=== PATIENT | female | born 1985 | race Caucasian/White ===

== ENCOUNTER 2016-07-22 23:50 | Emergency (ER) | payer OTHER ==
[~2016-07-22] VITALS: Ht 162.6 cm; Wt 72.6 kg
[~2016-07-22 23:50] MED LIST: DESYREL50 MG PO
[2016-07-23 00:11] VITALS: BP 164/89
--- NOTE | 2016-07-23 00:15 | NUR ---
Patient ambulated to bed 07.
--- NOTE | 2016-07-23 00:24 | NUR ---
PATIENT PRESENTS TO ED WITH NECK PAIN [id number] . PT STATES THE NECK PAIN IS NOW RADIATING TO HER HEAD. SHE STATES SHE TOOK ADVIL X1.5HOURS AGO WITH NO RELIEF. PT HAS HX OF MIGRAINES . DENIES DIARRHEA; SKIN IS PINK/WARM/DRY; AAOX4 WITH EVEN AND STEADY GAIT; LUNGS CLEAR BL; HR EVEN AND REGULAR; PT DENIES ANY FEVER, CP, SOB, OR COUGH AT THIS TIME; PATIENT STATES PAIN OF 10/10 AT THIS TIME; VSS; PATIENT POSITIONED FOR COMFORT; HOB ELEVATED; BEDRAILS UP X2; BED DOWN. ER MD MADE AWARE OF PT STATUS. FRIEND AT BEDSIDE
--- NOTE | 2016-07-23 00:29 | NUR ---
Dr. Sutton evaluating patient at bedside.
[2016-07-23] MEDS ORDERED: MORPHINE SULFATE 4 MG/ML SYR IVP ONE (00:30)
[2016-07-23] MEDS ORDERED: NACL 0.9% 1,000 ML IV ONE (00:30)
[2016-07-23] MEDS ORDERED: cefTRIAXone 1,000 MG VIAL ONE (00:37)
[2016-07-23 01:54] VITALS: BP 127/91
--- NOTE | 2016-07-23 01:54 | NUR ---
PER DR. GARCIA, Patient discharged with v/s stable. Written and verbal after care instructions given and explained. Patient alert, oriented and verbalized understanding of instructions. Ambulatory with steady gait. All questions addressed prior to discharge. ID band removed. Patient advised to follow up with PMD. Rx of CIPRO 500MG PO BID, NAPROSYN, AND SOMA given. Patient educated on indication of medication including possible reaction and side effects. Opportunity to ask questions provided and answered. D/C NOTE ONLY
== END 2016-07-23 01:54 | disposition home or self-care (01) ==
LOC: MED 23:50
DX: S16.1XXA Strain of muscle, fascia and tendon at neck level, initial encounter (principal); R03.0 Elevated blood-pressure reading, without diagnosis of hypertension; N39.0 Urinary tract infection, site not specified; X58.XXXA Exposure to other specified factors, initial encounter; Y93.89 Activity, other specified; Y92.89 Other specified places as the place of occurrence of the external cause; Y99.8 Other external cause status
CPT/HCPCS: 81002; 81025; 96365; 96375; 99284; J0696; J2270; J7030; J7060

== ENCOUNTER 2023-12-03 12:26 | Emergency (ER) | payer OTHER ==
[~2023-12-03] VITALS: Ht 162.6 cm; Wt 77.1 kg
[~2023-12-03 12:26] MED LIST changes: -DESYREL50 MG PO; +TRAZ-343 PO
[2023-12-03 12:31] VITALS: BP 145/97; PULSE 65; RESP 18; TEMP 98.4; O2SAT 99
[2023-12-03] MEDS: NACL 0.9% 1,000 ML IV ONE ×2 (13:28→15:29)
[2023-12-03] MEDS: KETOROLAC 30 MG/ML VIAL IVP ONE (13:30)
[2023-12-03] MEDS: PROCHLORPERAZINE 10 MG/2 ML VIAL IVP ONE (13:35)
[2023-12-03] MEDS: diphenhydrAMINE 50 MG/ML VIAL IVP ONE (13:36)
[2023-12-03 15:09] LABS: BASOPHILS % (AUTO) 0.5 % (0.0-2.0); EOSINOPHILS # (AUTO) 0.1 K/uL (0-0.4); EOSINOPHILS % (AUTO) 0.6 % (0.0-4.0); HEMATOCRIT 35.7 % (36-48); HEMOGLOBIN 11.7 g/dL (12.0-16.0); LYMPHOCYTES # (AUTO) 1.8 K/uL (2.5-16.5); LYMPHOCYTES % (AUTO) 18.6 % (20.5-51.1); MEAN CORPUSCULAR HEMOGLOBIN 31 pg (27-31); MEAN CORPUSCULAR HGB CONC 33 g/dL (33-37); MEAN CORPUSCULAR VOLUME 93.2 fL (80-94); MONOCYTES # (AUTO) 0.7 K/uL (0.8-1.0); MONOCYTES % (AUTO) 7.7 % (1.7-9.3); NEUTROPHILS # (AUTO) 6.9 K/uL (1.8-7.7); NEUTROPHILS % (AUTO) 72.6 % (42.2-75.2); PLATELET COUNT (AUTO) 287 K/uL (140-450); RED BLOOD CELL COUNT(AUTO) 3.82 MIL/uL (4.20-5.40); RED CELL DISTRIBUTION WIDTH 13.7 % (11.6-13.7); WHITE BLOOD COUNT (AUTO) 9.5 K/uL (4.8-10.8)
[2023-12-03 15:16] LABS: ANION GAP 10.1 (8-16); CALCIUM 8.5 mg/dL (8.5-10.1); CARBON DIOXIDE 26.9 mmol/L (21-32); CREATININE 0.6 mg/dL (0.6-1.3)
[2023-12-03 17:54] VITALS: BP 161/104; PULSE 70; RESP 18; TEMP 98.4; O2SAT 100
== END 2023-12-03 17:54 | disposition home or self-care (01) ==
LOC: MED 12:26
DX: G43.909 Migraine, unspecified, not intractable, without status migrainosus (principal); R42 Dizziness and giddiness; R11.2 Nausea with vomiting, unspecified; Z90.49 Acquired absence of other specified parts of digestive tract; Z98.890 Other specified postprocedural states; Z79.899 Other long term (current) drug therapy; F15.90 Other stimulant use, unspecified, uncomplicated
CPT/HCPCS: 36415; 80048; 81025; 84484; 85025; 93005; 96361; 96374; 96375; 99284; J0780; J1200; J1885; J7030

== ENCOUNTER 2024-01-23 02:20 | Emergency (ER) | payer OTHER ==
[~2024-01-23] VITALS: Ht 162.6 cm; Wt 77.1 kg
[2024-01-23 02:26] VITALS: BP 170/97; PULSE 65; RESP 24; TEMP 98.2; O2SAT 98
[2024-01-23] MEDS: NACL 0.9% 1,000 ML IV ONE (03:10)
[2024-01-23] MEDS: diphenhydrAMINE 50 MG/ML VIAL IVP ONE (03:12)
[2024-01-23] MEDS: KETOROLAC 30 MG/ML VIAL IVP ONE (03:13)
[2024-01-23] MEDS: METOCLOPRAMIDE 10 MG/2 ML INJ VIAL IVP ONE (03:14)
[2024-01-23] MEDS: ACETAMINOPHEN EXTRA STRENGTH 500 MG TAB PO ONE (03:23)
[2024-01-23] MEDS ORDERED: HYDR25CA1 PO (03:44)
[2024-01-23] MEDS ORDERED: ACET500T99 PO (03:44)
[2024-01-23] MEDS ORDERED: IBUP-2213 PO (03:44)
[2024-01-23] MEDS ORDERED: PROC-87 PO (03:44)
[2024-01-23 04:17] VITALS: BP 162/92; PULSE 63; RESP 20; TEMP 98; O2SAT 100
== END 2024-01-23 04:17 | disposition home or self-care (01) ==
LOC: MED 02:20
DX: G43.909 Migraine, unspecified, not intractable, without status migrainosus (principal); Z79.1 Long term (current) use of non-steroidal anti-inflammatories (NSAID); Z79.899 Other long term (current) drug therapy
CPT/HCPCS: 81025; 96361; 96374; 96375; 99284; J1200; J1885; J2765; J7030